=== PATIENT | male | born 1970 | race Caucasian/White ===

== ENCOUNTER 2022-11-25 08:19 | Day surgery (SDC) | payer BC ==
--- NOTE | 2022-11-24 11:57 | HP ---
DATE OF SURGERY: 11/25/2022 HISTORY OF PRESENT ILLNESS: The patient is a 52-year-old male presents for endoscopy. He is due for screening. He has got some thrombosed external hemorrhoids he would like to have removed. PAST MEDICAL HISTORY: Hyperlipidemia. Hypertension. Diabetes mellitus type II. Arthritis. PAST SURGICAL HISTORY: Tonsillectomy. Right hand surgery. Eye surgery. ALLERGIES: NKDA. MEDICATIONS: Aspirin, cyclobenzaprine, diclofenac, promethazine, Benzonatate, metformin, pravastatin. FAMILY HISTORY: Colon cancer. SOCIAL HISTORY: Negative. REVIEW OF SYSTEMS: CONSTITUTIONAL: Denies fever or chills. CHEST: Denies shortness of breath. CVS: Denies chest pain. ABDOMEN: Denies abdominal pain. PHYSICAL EXAMINATION: GENERAL: No acute distress. CHEST: Nonlabored. No shortness of breath. CVS: Regular rate and rhythm. ABDOMEN: Soft. IMPRESSION: Screening and symptomatic hemorrhoids. PLAN: Colonoscopy and hemorrhoidectomy with Dr. Rajiv Mcdaniel. As dictated by Alee Avilez NP.
[2022-11-25] MEDS ORDERED: EXPAREL 133 MG/10 ML VIAL IJ ONE (08:20)
[2022-11-25] MEDS ORDERED: TYLENOL EXTRA STRENGTH 500 MG ONE (08:51)
[2022-11-25] MEDS ORDERED: Lactated Ringers 1,000 ML IV ONE (08:51)
[2022-11-25] MEDS ORDERED: Decadron 4 MG PO ONE (09:00)
[2022-11-25] MEDS ORDERED: celeBREX 100 MG PO ONE (09:00)
[2022-11-25] MEDS ORDERED: TYLENOL EXTRA STRENGTH 500 MG PO ONE (09:00)
[2022-11-25] MEDS ORDERED: NEURONTIN PO ONE (09:00)
[2022-11-25] MEDS ORDERED: Lactated Ringers 1,000 ML IV SCH (09:00)
[2022-11-25 09:30] LABS: Hematocrit 44.8 % (42-50); Hemoglobin 15.2 g/dL (12.5-18.0); Mean Corpuscular Hemoglobin 31.2 pg (26-32); Mean Corpuscular Hgb Concent. 33.9 g/dL (32-36); Mean Platelet Volume 10.4 fL (7.5-11.0); Platelet Count 235 x10^3/uL (150-450); Red Blood Count 4.87 x10^6/uL (4.1-5.6); Red Cell Distribution Width 12.5 % (11.5-14.0); White Blood Count 6.1 x10^3/uL (4.0-10.5)
[2022-11-25 09:55] LABS: ALBUMIN 4.1 g/dL (3.5-5.0); ALKALINE PHOSPHATASE 119 U/L (38-126); ANION GAP 15.9 MEQ/L (5-15); BLOOD UREA NITROGEN 7 mg/dL (9-20); CHLORIDE 101 mmol/L (98-107); Calcium 8.4 mg/dL (8.4-10.2); Carbon Dioxide 25 mmol/L (22-30); Creatinine 1 0.57 mg/dL (0.66-1.25); EST GLOMERULAR FILTRATION RATE > 60.0 ML/MIN; Glucose 147 mg/dL (74-106); Potassium 3.7 mmol/L (3.5-5.1); SGOT/AST 21 U/L (17-59); SGPT/ALT 22 U/L (0-50); SODIUM 139 mmol/L (137-145); Total Protein 6.9 g/dL (6.3-8.2)
[2022-11-25] MEDS ORDERED: MEFOXIN 2 GM PREMIX** 2 GM/50 ML ML IV ONE (10:39)
[2022-11-25] MEDS ORDERED: Zemuron 100 MG/10 ML ONE ×2 (10:53→11:43)
[2022-11-25] MEDS ORDERED: DIPRIVAN 200 MG/20 ML IV ONE (10:53)
[2022-11-25] MEDS ORDERED: Versed 2 MG/2 ML Injection ONE (10:54)
[2022-11-25] MEDS ORDERED: SUBLIMAZE 100 MCG/2 ML ONE (10:54)
[2022-11-25] MEDS ORDERED: MEFOXIN 2 GM PREMIX** 2 GM/50 ML ML IV SCH (11:00)
[2022-11-25] MEDS ORDERED: Zofran 4 MG/2 ML VIAL ONE (11:34)
[2022-11-25] MEDS ORDERED: TORAdol 30 mg Injection ONE (11:34)
[2022-11-25] MEDS ORDERED: Ketamine HCl 50 MG/ML ONE (11:50)
[2022-11-25] MEDS ORDERED: BRIDION 200MG/2ML IV ONE (12:11)
[2022-11-25 14:08] VITALS: O2SAT 93
[2022-11-25 14:09] VITALS: PULSE 76
[2022-11-25 14:22] VITALS: BP 136/80
--- NOTE | 2022-11-26 08:53 | OP ---
AMENDED REPORT: SURGERY DATE: 11/25/2022 SURGERY TIME: 1114 PREOPERATIVE DIAGNOSES: 1) Severe external hemorrhoids. 2) Colonoscopy screening. POSTOPERATIVE DIAGNOSES: 1) Severe external hemorrhoids requiring hemorrhoidectomy. 2) Colonoscopy screening satisfactory except for external hemorrhoids. PROCEDURES: 1) Colonoscopic examination. The patient has findings of moderate sigmoid diverticulosis, otherwise satisfactory. 2) Open hemorrhoidectomy x3, 1 external and 2 internal hemorrhoids. SURGEON: Rajiv Mcdaniel M.D. ANESTHESIA: General. Patient did have long-lasting Marcaine placed, 10 cc. COMPLICATIONS: None. CONDITION: Stable. INDICATION: Patient had had some symptomatic thrombosed hemorrhoids that he was tired of. He was also due for colonoscopy. OPERATIVE PROCEDURE: He was taken to endoscopy. Left lateral decubitus position. Scope introduced. Scope advanced to the cecum. Base of the cecum, ileocecal valve, appendiceal orifice were normal. Ascending, hepatic, transverse, splenic, descending, and sigmoid; moderate diverticulosis. Rectum and anus, the hemorrhoids were noted. Located at 5 o'clock and 7 o'clock 2 internals were taken with base suture of 2-0 Chromic. They were then clamped, amputated, and secured with an over and under suture. Additionally, at 7 o'clock, an external was taken and secured with an over and under suture. Patient tolerated the procedure satisfactory. Long-lasting extra was placed, 10 cc circumferential.
== END 2022-11-25 14:15 | disposition home or self-care (01) ==
LOC: SDC 08:19
PROVIDERS: ATTEND Surgery
DX: Z12.11 Encounter for screening for malignant neoplasm of colon (principal); K64.4 Residual hemorrhoidal skin tags; K57.30 Diverticulosis of large intestine without perforation or abscess without bleeding; K64.8 Other hemorrhoids; Z80.0 Family history of malignant neoplasm of digestive organs; E11.9 Type 2 diabetes mellitus without complications; I10 Essential (primary) hypertension
CPT/HCPCS: 36415; 80053; 82947; 85027; 93005; J0694; J1885; J2250; J2405; J2704; J3010; A9270-GY